=== PATIENT | female | born 1955 ===

== ENCOUNTER 2016-12-20 11:46 | Emergency (ER) | payer SELFPAY ==
[~2016-12-20] VITALS: Ht 165.1 cm; Wt 94.0 kg
[2016-12-20 11:48] VITALS: BP 144/77; PULSE 88; RESP 20; TEMP 97.8; O2SAT 96
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
== END 2016-12-20 13:46 | disposition left against medical advice (07) ==
LOC: NEPK 11:46
DX: M25.562 Pain in left knee (principal)
CPT/HCPCS: 99281